=== PATIENT | female | born 1970 | race Caucasian/White ===

== ENCOUNTER → 2018-11-26 | Outpatient (CLI) | payer OTHER ==
[2018-11-26 14:57] LABS: HCT 44.2 % (34.0-46.0); HGB 15.1 gm/dL (11.4-16.0); MCH 31.9 pg (25.0-35.0); MCHC 34.1 g/dL (31.0-37.0); MCV 93.5 fL (80.0-100.0); Mean Platelet Volume 6.9; Platelet Count 161 k/uL (150-450); RBC 4.73 m/uL (3.80-5.40); RDW 12.5 % (11.5-15.5); WBC 4.5 k/uL (3.8-10.6)
[2018-11-26 15:06] LABS: Appearance,Urine Cloudy (Clear); Bacteria,Urine Rare /hpf; Bilirubin,Urine Negative (Negative); Blood,Urine Negative (Negative); Color,Urine Yellow; Glucose,Urine (UA) Negative (Negative); Ketones,Urine Negative (Negative); Leukocyte Esterase,Urine Trace (Negative); Mucus,Urine Rare /hpf; Nitrite,Urine Negative (Negative); PH, Urine 6.5 (5.0-8.0); Protein,Urine Negative (Negative); RBC,Urine <1 /hpf (0-5); Squamous Epithelial Cell,Urine 3 /hpf (0-4); Urobilinogen,Urine <2.0 mg/dL (<2.0); WBC,Urine 1 /hpf (0-5)
[2018-11-26 15:11] LABS: ALT 28 U/L (9-52); AST 24 U/L (14-36); Albumin 4.7 g/dL (3.5-5.0); Alkaline Phosphatase 60 U/L (38-126); Anion Gap 7 mmol/L; Blood Urea Nitrogen 10 mg/dL (7-17); C Reactive Protein <5.0 mg/L (<10.0); Calcium 9.5 mg/dL (8.4-10.2); Carbon Dioxide 29 mmol/L (22-30); Chloride 105 mmol/L (98-107); Cholesterol 227 mg/dL (<200); Glucose 81 mg/dL (74-99); HDL Cholesterol 93 mg/dL (40-60); LDL Cholesterol,Calculated 119 mg/dL (0-99); Lithium <0.2 mmol/L; Magnesium 2.2 mg/dL (1.6-2.3); Phosphorus 3.3 mg/dL (2.5-4.5); Potassium 4.5 mmol/L (3.5-5.1); Sodium 141 mmol/L (137-145); Total Bilirubin 1.2 mg/dL (0.2-1.3); Triglycerides 76 mg/dL (<150); Uric Acid 5.2 mg/dL (3.7-7.4)
[2018-11-26 15:25] LABS: T4, Free (Free Thyroxine) 0.73 ng/dL (0.78-2.19)
[2018-11-26 18:47] LABS: Vitamin D 25 Hydroxy 65.5 ng/mL (30.0-100.0)
[2018-11-26 18:50] LABS: Iron Saturation 49.43 (12.00-45.00)
[2018-11-26 19:02] LABS: Progesterone 1.1 ng/mL
[2018-11-26 19:04] LABS: DHEA Sulfate 105.6 ug/dL (26.0-430.0)
[2018-11-26 19:17] LABS: Folate, Serum >24.0 ng/mL; Thyroid Peroxidase Antibodies <28.0 U/mL (0.0-60.0)
[2018-11-26 21:45] LABS: Hemoglobin A1C 5.2 % (4.0-6.0)
[2018-11-27 11:11] LABS: Candida albicans IgE Class CLASS 0
[2018-11-27 12:06] LABS: Lead, Blood <0.5 ug/dL (<5.0)
[2018-11-27 13:52] LABS: Zinc, Serum 76 ug/dL (60-130)
[2018-11-28 17:18] LABS: Arsenic Whole Blood <2 mcg/L (< 23); Mercury Whole Blood <2 mcg/L (< 11)
[2018-11-28 19:24] LABS: Insulin-like GF3 Bind Prot 6.1 mg/L (3.3-6.7)
[2018-11-29 13:48] LABS: Growth Hormone, Human 0.1 ng/mL (<10)
[2018-11-29 21:33] LABS: Selenium 161 mcg/L (63-160)
== END ==
LOC: RADUSWWP 11:27
PROVIDERS: ATTEND Chiropractor
DX: K59.9 Functional intestinal disorder, unspecified (principal); K71.9 Toxic liver disease, unspecified; E55.9 Vitamin D deficiency, unspecified; E46 Unspecified protein-calorie malnutrition; R93.89 Abnormal findings on diagnostic imaging of other specified body structures
CPT/HCPCS: 80053; 80061; 80178; 81001; 82175; 82300; 82306; 82397; 82525; 82533; 82607; 82627; 82670; 82728; 82746; 83003; 83018; 83036; 83090; 83540; 83550; 83655; 83735; 83785; 83825; 84100; 84144; 84255; 84270; 84403; 84439; 84443; 84481; 84550; 84630; 85027; 86003; 86140; 86376; 86800; 86850; 86900; 86901

== ENCOUNTER → 2018-11-26 | Outpatient (CLI) | payer OTHER ==
--- NOTE | 2018-11-26 13:44 | US ---
EXAMINATION TYPE: US abdomen APPY DATE OF EXAM: 11/26/2018 COMPARISON: NONE CLINICAL HISTORY: R93.89. APPENDIX AP Diameter (normal < 6mm): 3 mm Measured outer wall to outer wall. Is the appendix seen in its entirety from the proximal cecum to distal end: no Not well visualized enough to compress Does the appendix wall appear hypervascular: no Is an appendicolith present: no Is there inflammatory changes or free fluid present: no IMPRESSION: Portions of the appendix are visualized and within normal limits of size however the ent irety of the appendix is not seen sonographically. No secondary evidence of acute appendicitis sonogr aphically.
--- NOTE | 2018-11-26 13:46 | US ---
EXAMINATION TYPE: US abdomen limited DATE OF EXAM: 11/26/2018 COMPARISON: NONE CLINICAL HISTORY: R93.89 RT UPPER AND QUAD HYPERTHEMIA. EXAM MEASUREMENTS: Liver Length: 11.5 cm Gallbladder Wall: 0.2 cm CBD: 0.3 cm Right Kidney: 11.2 x 4.6 x 5.9 cm Pancreas: partially obscured by bowel gas, portions visualized wnl Liver: homogeneous Gallbladder: gallstone measuring 1.5cm Evidence for sonographic Charles's sign: no CBD: wnl Right Kidney: wnl Visualized liver appears homogeneous. No focal masses seen on today's examination. Cholelithiasis is evident without gallbladder wall thickening or pericholecystic fluid. No common bile duct dilatation. Right kidney demonstrates no evidence of hydronephrosis. The pancreas is predominantly obscured by b owel gas and limited in evaluation. IMPRESSION: 1. Cholelithiasis without sonographic evidence of acute cholecystitis. 2. Pancreas is predominantly obscured by bowel gas and limited in evaluation.
--- NOTE | 2018-11-26 14:26 | USB ---
Reason for exam: clinical finding. History: Patient history of other cancer. Implant Removal of both breasts, 2017. Implants in both breasts, 1996. Took hormonal contraceptives for 5 years. Taking other hormone for 2 years. Indicated problem(s): pain in the left breast. Physical Findings: Nurse Summary: right BB at palpable, round, mobile 0.5cm, left BB at palpable, round, mobile 0.5cm (nurse kylah). US Breast BILAT Right complete breast ultrasound includes all four quadrants, the retroareolar region and axilla. Finding demonstrates no cystic or solid lesion seen. Left complete breast ultrasound includes all four quadrants, the retroareolar region and axilla. Finding demonstrates no cystic or solid lesion seen. No suspicious sonographic finding. These results were verbally communicated with the patient and result sheet given to the patient on 11/26/18. ASSESSMENT: Negative, BI-RAD 1 RECOMMENDATION: Follow-up diagnostic mammogram of both breasts. (Mammography recommended. Patient does not want mammogram at this time.)
== END | disposition home or self-care (01) ==
LOC: RADUSWWP 12:15
PROVIDERS: ATTEND Chiropractor
DX: K80.20 Calculus of gallbladder without cholecystitis without obstruction (principal); R50.9 Fever, unspecified
CPT/HCPCS: 76705